=== PATIENT | male | born 1975 | race Caucasian/White ===

== ENCOUNTER 2016-10-28 23:35 | Emergency (ER) | payer OTHER ==
[~2016-10-28] VITALS: Ht 193 cm; Wt 86.4 kg
[~2016-10-28 23:35] MED LIST: ASPI81TA83 OR; IBUP600T OR; INSULIN; INSULIN NPH SC; insulin
[2016-10-28] MEDS ORDERED: LEVO50TA5 PO (23:46)
[2016-10-28] MEDS ORDERED: TRAZ1TAB14 PO (23:46)
[2016-10-29] MEDS ORDERED: NEOSPORIN OINT 0.9 GM PKT (FLOOR STOCK) As Ordered ONE (01:20)
[2016-10-29 01:28] VITALS: BP 139/87
== END 2016-10-29 01:29 | disposition home or self-care (01) ==
LOC: M ED 23:35
DX: S61.213A Laceration without foreign body of left middle finger without damage to nail, initial encounter (principal); W22.8XXA Striking against or struck by other objects, initial encounter; Y92.099 Unspecified place in other non-institutional residence as the place of occurrence of the external cause; Y93.89 Activity, other specified; Y99.9 Unspecified external cause status

== ENCOUNTER → 2017-01-11 | Outpatient (CLI) | payer OTHER ==
[~2017-01-11] MED LIST changes: +LEVO50TA5 PO; +TRAZ1TAB14 PO
--- NOTE | 2017-01-11 14:08 | REP ---
MR LUMBAR SPINE WITHOUT CONTRAST: HISTORY: Back pain. COMPARISON: 03/18/2010. Decreased signal intensity on T2-weighted images is present in the L3-4 through L5-S1 intervertebral discs. The L3-4 and L4-5 intervertebral discs are decreased in height. These findings are consistent with disc degeneration. There is no disc bulge or herniation at the L1-2 and L2-3 levels. The nerves exit the neural foramina without compression. A diffuse disc bulge and small central disc protrusion are present at the L3-4 level. There is minimal compression of the thecal sac. The L3 nerves exit the neural foramina without compression. A diffuse disc bugle is present at the L4-5 level. There is minimal compression of the thecal sac. There is hypertrophy of the posterior articulating facets. The L4 nerves exit the neural foramina without compression. A diffuse disc bugle and small right paracentral and intraforaminal disc protrusion are present at the L5-S1 level. The disc protrusion abuts the right S1 nerve. There is no thecal sac compression. There is hypertrophy of the posterior articulating facets. The L5 nerves exit the neural foramina without compression. The conus medullaris is normal in appearance terminating at the level of the T12-L1 intervertebral disc. Normal signal intensity is present in the lumbar vertebral bodies. IMPRESSION: 1. Diffuse disc bulge and small central disc protrusion at the L3-4 level with minimal thecal sac compression. This is a new finding. 2. Diffuse disc bulge at the L4-5 level with minimal thecal sac compression. 3. Diffuse disc bugle and small right paracentral and intraforaminal disc protrusion at the L5-S1 level. The disc protrusion abuts the right S1 nerve. There is no other significant change. Signed by Lennox Guzman MD 01/11/2017 02:26 P
== END ==
LOC: M RAD 12:49
PROVIDERS: ATTEND Family Medicine
DX: M51.26 Other intervertebral disc displacement, lumbar region (principal); M51.27 Other intervertebral disc displacement, lumbosacral region

== ENCOUNTER → 2017-05-15 | Outpatient (CLI) | payer OTHER | LOC: M RAD 13:32 | DX: M25.512 Pain in left shoulder (principal) | CPT/HCPCS: 73030 ==

== ENCOUNTER 2017-11-24 08:07 | Emergency (ER) | payer OTHER | END 2017-11-24 08:40 | disposition home or self-care (01) | LOC: M ED 08:07 | DX: L03.032 Cellulitis of left toe (principal); E03.9 Hypothyroidism, unspecified; F41.9 Anxiety disorder, unspecified; F17.200 Nicotine dependence, unspecified, uncomplicated; Z88.1 Allergy status to other antibiotic agents; Z88.0 Allergy status to penicillin; Z79.4 Long term (current) use of insulin; Z79.899 Other long term (current) drug therapy; Z79.890 Hormone replacement therapy | CPT/HCPCS: 99282 ==

== ENCOUNTER 2018-06-08 20:36 | Emergency (ER) | payer OTHER ==
[~2018-06-08] VITALS: Ht 193 cm; Wt 81.8 kg
[~2018-06-08 20:36] MED LIST changes: +ALPR0.5T3; +BACT800T5 PO; +HYDROCO/APAP PO; +INSURSD; +LEVO150T7; +NORCOTAB PO; +TOUJ1.2I
[2018-06-08 22:10] LABS: HEMOGLOBIN A1c 9.6 %
[2018-06-08 22:20] LABS: FREE THYROXINE INDEX 3.2 % (1.4-3.8); THYROID STIMULATING HORMONE 4.59 uIU/ML (0.358-3.740); THYROXINE (T4) 8.6 UG/DL (4.5-12.0)
[2018-06-08] MEDS ORDERED: LEVO112T2 PO (22:34)
[2018-06-08] MEDS ORDERED: TOUJ1.2I SC (22:34)
[2018-06-08 22:45] VITALS: BP 134/78
== END 2018-06-08 22:51 | disposition home or self-care (01) ==
LOC: M ED 20:36
DX: Z76.0 Encounter for issue of repeat prescription (principal); E11.9 Type 2 diabetes mellitus without complications; E03.9 Hypothyroidism, unspecified; F17.210 Nicotine dependence, cigarettes, uncomplicated; Z88.0 Allergy status to penicillin; Z88.1 Allergy status to other antibiotic agents; Z79.4 Long term (current) use of insulin; Z79.899 Other long term (current) drug therapy

== ENCOUNTER 2018-07-10 16:55 | Emergency (ER) | payer OTHER ==
[~2018-07-10] VITALS: Ht 193 cm; Wt 82.7 kg
[~2018-07-10 16:55] MED LIST changes: +HYDR-3715 PO; +LEVO112T2 PO; -NORCOTAB PO; +TOUJ1.2I SC
[2018-07-10] MEDS ORDERED: TOUJ1.2I SC ×2 (17:35→17:38)
[2018-07-10 17:51] LABS: BASO # 0.1 10^3/uL (0.0-0.2); BASO % 0.8 % (0.0-1.0); EOS # 0.5 10^3/uL (0.0-0.50); EOS % 4.1 % (0.0-3.0); HEMATOCRIT 40.4 % (42.0-52.0); HEMOGLOBIN 14.1 g/dl (13.5-17.5); LYMPH # 3.1 10^3/uL (1.5-4.5); LYMPH % 23.1 % (24.0-44.0); MEAN CORPUSCULAR HEMOGLOBIN 30.2 pg (27.0-33.0); MEAN CORPUSCULAR HGB CONC 34.9 g/dl (32.0-36.5); MEAN CORPUSCULAR VOLUME 86.5 fl (80.0-96.0); MONO # 0.8 10^3/uL (0.0-0.8); MONO % 6.1 % (0.0-5.0); NEUTROPHILS # 8.7 10^3/uL (1.8-7.7); NEUTROPHILS % 65.5 % (36.0-66.0); PLATELET COUNT, AUTOMATED 340 10^3/uL (150-450); RED BLOOD COUNT 4.67 10^6/uL (4.30-6.10); WHITE BLOOD COUNT 13.2 10^3/uL (4.0-10.0)
--- NOTE | 2018-07-10 18:01 | REP ---
PA and lateral chest: Comparison is a 02/12/2015. The lung camp are clear. The cardiac size is normal. The dianna, mediastinum, and skeletal structures are unremarkable. Impression: Negative PA and lateral chest. There is no interval change. Electronically Signed by Juaquin Rucker MD 07/10/2018 05:52 P
[2018-07-10 18:18] LABS: ALBUMIN 4.1 GM/DL (3.2-5.2); ALT/SGPT 23 U/L (12-78); BILIRUBIN,TOTAL 0.2 MG/DL (0.2-1.0); BLOOD UREA NITROGEN 15 MG/DL (7-18); CALCIUM LEVEL 9.1 MG/DL (8.5-10.1); CARBON DIOXIDE LEVEL 28 MEQ/L (21-32); CHLORIDE LEVEL 99 MEQ/L (98-107); CPK CREATINE PHOSPHOKINASE 227 U/L (39-308); CREATININE FOR GFR 1.12 MG/DL (0.70-1.30); GLOMERULAR FILTRATION RATE > 60.0 (>60); GLUCOSE, FASTING 309 MG/DL (70-100); MB/CK RELATIVE INDEX 1.15 (< OR =4); POTASSIUM SERUM 4.6 MEQ/L (3.5-5.1); SODIUM LEVEL 133 MEQ/L (136-145); TOTAL PROTEIN 7.1 GM/DL (6.4-8.2); TROPONIN I < 0.02 NG/ML (< 0.10)
[2018-07-10] MEDS ORDERED: ZANA4TAB PO (18:24)
[2018-07-10] MEDS ORDERED: MOBI4TAB PO (18:24)
[2018-07-10] MEDS ORDERED: NAPROXEN 250 MG TAB PO ONE (18:45)
[2018-07-10 18:56] VITALS: BP 136/83
[2018-07-10] MEDS ORDERED: NS 500 ML IV ONE (19:15)
[2018-07-10] MEDS ORDERED: KETOROLAC 30 MG/ML VIAL (J1885) IV ONE (19:15)
--- NOTE | 2018-07-10 21:48 | ECGEPIP ---
Stationary ECG Study [facility] - ED Test Date: 2018-07-10 Pat Name: RAMAKRISHNA FREIRE Department: Room: - Gender: M [employer] Maker: ct : 1975 Requested By: Damon Degroot Order Number: [id number] Reading MD: Anna Chery Measurements Intervals [place] Rate: 82 P: 77 [place]: 185 QRS: 205 QRSD: 153 T: 41 QT: 385 QTc: 451 Interpretive Statements SINUS RHYTHM INDETERMINATE AXIS RIGHT BUNDLE BRANCH BLOCK LEFT POSTERIOR FASCICULAR BLOCK INCREASED RATE 01/18/15 Electronically Signed On 07-10-2018 21:47:50 EDT by Anna Chery
== END 2018-07-10 19:02 | disposition home or self-care (01) ==
LOC: M ED 16:55
DX: Z76.0 Encounter for issue of repeat prescription (principal); R07.89 Other chest pain; I44.5 Left posterior fascicular block; I45.10 Unspecified right bundle-branch block; E11.9 Type 2 diabetes mellitus without complications; E03.9 Hypothyroidism, unspecified; F41.9 Anxiety disorder, unspecified; Z79.899 Other long term (current) drug therapy; Z79.890 Hormone replacement therapy; Z79.4 Long term (current) use of insulin; Z88.0 Allergy status to penicillin; Z88.1 Allergy status to other antibiotic agents; F17.210 Nicotine dependence, cigarettes, uncomplicated

== ENCOUNTER → 2018-07-24 | Outpatient (REF) | payer OTHER ==
[~2018-07-24] MED LIST changes: +MOBI4TAB PO; +ZANA4TAB PO
[2018-07-24 15:34] LABS: BLOOD UREA NITROGEN 11 MG/DL (7-18); CALCIUM LEVEL 8.9 MG/DL (8.5-10.1); CARBON DIOXIDE LEVEL 25 MEQ/L (21-32); CHLORIDE LEVEL 102 MEQ/L (98-107); CHOLESTEROL LEVEL 180 MG/DL (<200); CHOLESTEROL RISK RATIO 3.157 (<5); CREATININE FOR GFR 0.95 MG/DL (0.70-1.30); GLOMERULAR FILTRATION RATE > 60.0 (>60); GLUCOSE, FASTING 196 MG/DL (70-100); HDL CHOLESTEROL 57 MG/DL (>40); LDL CHOLESTEROL 115 MG/DL (<100); NON-HDL-C 123 MG/DL; POTASSIUM SERUM 4.5 MEQ/L (3.5-5.1); SODIUM LEVEL 135 MEQ/L (136-145); TRIGLYCERIDES LEVEL 41 MG/DL (<150)
[2018-07-24 16:04] LABS: MALB URINE SIEMENS 16.4 MG/L; MAU/CREAT RATIO 13.2 MCG/MG (0.0-30.0)
== END ==
LOC: M SFHCPLAZ 09:53
PROVIDERS: ATTEND Family Medicine
DX: E10.65 Type 1 diabetes mellitus with hyperglycemia (principal); E78.2 Mixed hyperlipidemia

== ENCOUNTER → 2019-03-10 | Outpatient (REF) | payer OTHER ==
[2019-03-10 14:13] LABS: HEMOGLOBIN A1c 9.3 %
[2019-03-10 14:30] LABS: BLOOD UREA NITROGEN 16 MG/DL (7-18); C REACTIVE PROTEIN QUANTITATIV < 0.30 MG/DL (0.00-0.30); CALCIUM LEVEL 9.5 MG/DL (8.5-10.1); CARBON DIOXIDE LEVEL 30 MEQ/L (21-32); CHLORIDE LEVEL 102 MEQ/L (98-107); CREATININE FOR GFR 0.97 MG/DL (0.70-1.30); FREE T4 0.88 NG/DL (0.76-1.46); GLOMERULAR FILTRATION RATE > 60.0 (>60); GLUCOSE, FASTING 142 MG/DL (70-100); POTASSIUM SERUM 4.6 MEQ/L (3.5-5.1); SODIUM LEVEL 135 MEQ/L (136-145)
== END ==
LOC: M SFHCPLAZ 11:43
PROVIDERS: ATTEND Physician Assistant
DX: E10.65 Type 1 diabetes mellitus with hyperglycemia (principal); M54.42 Lumbago with sciatica, left side; E03.9 Hypothyroidism, unspecified; E78.2 Mixed hyperlipidemia

== ENCOUNTER → 2019-03-12 | Outpatient (CLI) | payer OTHER ==
--- NOTE | 2019-03-12 14:01 | REP ---
Right elbow series: Four views. History: Pain in the right elbow. Findings: There is minimal soft tissue swelling about the olecranon process. There is no evidence of joint effusion. No fracture or arthropathy is evident. Impression: No acute abnormality. Mild miguel olecranon soft tissue swelling. Otherwise negative. Electronically Signed by Jacoby Velazquez MD 03/12/2019 01:53 P
== END ==
LOC: M LAB 09:24 → M RAD 09:24
PROVIDERS: ATTEND Physician Assistant
DX: M25.521 Pain in right elbow (principal)

== ENCOUNTER → 2019-06-02 | Outpatient (CLI) | payer OTHER ==
[2019-06-02 14:21] LABS: BLOOD UREA NITROGEN 15 MG/DL (7-18); CALCIUM LEVEL 9.7 MG/DL (8.5-10.1); CARBON DIOXIDE LEVEL 28 MEQ/L (21-32); CHLORIDE LEVEL 106 MEQ/L (98-107); FREE T4 1.05 NG/DL (0.76-1.46); GLOMERULAR FILTRATION RATE > 60.0 (>60); GLUCOSE, FASTING 121 MG/DL (70-100); POTASSIUM SERUM 4.8 MEQ/L (3.5-5.1); SODIUM LEVEL 137 MEQ/L (136-145)
[2019-06-02 14:56] LABS: HEMOGLOBIN A1c 7.6 %
== END ==
LOC: M PLALAB 10:43
PROVIDERS: ATTEND Physician Assistant
DX: E10.65 Type 1 diabetes mellitus with hyperglycemia (principal); E03.9 Hypothyroidism, unspecified

== ENCOUNTER → 2019-09-01 | Outpatient (REF) | payer OTHER ==
[2019-09-01 13:26] LABS: BLOOD UREA NITROGEN 9 MG/DL (7-18); CALCIUM LEVEL 9.4 MG/DL (8.5-10.1); CARBON DIOXIDE LEVEL 26 MEQ/L (21-32); CHLORIDE LEVEL 105 MEQ/L (98-107); CHOLESTEROL LEVEL 202 MG/DL (<200); CHOLESTEROL RISK RATIO 3.311 (<5); GLOMERULAR FILTRATION RATE > 60.0 (>60); GLUCOSE, FASTING 47 MG/DL (70-100); HDL CHOLESTEROL 61 MG/DL (>40); LDL CHOLESTEROL 132 MG/DL (<100); NON-HDL-C 141 MG/DL; POTASSIUM SERUM 4.3 MEQ/L (3.5-5.1); SODIUM LEVEL 138 MEQ/L (136-145); TRIGLYCERIDES LEVEL 43 MG/DL (<150)
[2019-09-01 13:55] LABS: MAU/CREAT RATIO 6.7 MCG/MG (0.0-30.0)
[2019-09-01 14:38] LABS: HEMOGLOBIN A1c 7.2 %
== END ==
LOC: M SFHCPLAZ 11:24
PROVIDERS: ATTEND Physician Assistant
DX: E10.65 Type 1 diabetes mellitus with hyperglycemia (principal); E78.2 Mixed hyperlipidemia

== ENCOUNTER → 2019-12-05 | Outpatient (CLI) | payer OTHER ==
--- NOTE | 2019-12-29 16:49 | REP ---
LUMBOSACRAL SPINE SERIES TECHNIQUE: AP, lateral, bilateral oblique views and coned down views of the lumbosacral spine. CLINICAL: Low back pain. FINDINGS: Alignment and lordosis maintained. Vertebral bodies are intact. Disc spaces appear relatively normal. No acute fracture/compression injury or subluxation. IMPRESSION: Normal radiographic evaluation of the lumbosacral spine. If the patient remains symptomatic consider MRI for further investigation. MTDD
== END ==
LOC: M RAD 11:46
PROVIDERS: ATTEND Physician Assistant
DX: M54.5 Low back pain (principal)

== ENCOUNTER → 2020-05-28 | Outpatient (REF) | payer OTHER ==
[2020-05-28 12:17] LABS: BLOOD UREA NITROGEN 17 MG/DL (7-18); CALCIUM LEVEL 9.4 MG/DL (8.5-10.1); CARBON DIOXIDE LEVEL 27 MEQ/L (21-32); CHLORIDE LEVEL 104 MEQ/L (98-107); CHOLESTEROL LEVEL 320 MG/DL (<200); CHOLESTEROL RISK RATIO 6.153 (<5); CREATININE FOR GFR 1.17 MG/DL (0.70-1.30); GLOMERULAR FILTRATION RATE > 60.0 (>60); GLUCOSE, FASTING 195 MG/DL (70-100); HDL CHOLESTEROL 52 MG/DL (>40); LDL CHOLESTEROL 246 MG/DL (<100); NON-HDL-C 268 MG/DL; SODIUM LEVEL 136 MEQ/L (136-145); TRIGLYCERIDES LEVEL 109 MG/DL (<150)
== END ==
LOC: M SFHCPLAZ 08:06
PROVIDERS: ATTEND Physician Assistant
DX: E10.65 Type 1 diabetes mellitus with hyperglycemia (principal); E78.2 Mixed hyperlipidemia

== ENCOUNTER → 2020-11-15 | Outpatient (CLI) | payer OTHER ==
[2020-11-15 18:13] LABS: ALBUMIN 3.8 GM/DL (3.2-5.2); ALT/SGPT 26 U/L (12-78); BILIRUBIN,TOTAL 0.3 MG/DL (0.2-1.0); BLOOD UREA NITROGEN 13 MG/DL (7-18); CALCIUM LEVEL 8.6 MG/DL (8.5-10.1); CARBON DIOXIDE LEVEL 28 MEQ/L (21-32); CHLORIDE LEVEL 102 MEQ/L (98-107); CHOLESTEROL LEVEL 185 MG/DL (<200); CHOLESTEROL RISK RATIO 5.781 (<5); CREATININE FOR GFR 1.14 MG/DL (0.70-1.30); FREE T4 0.78 NG/DL (0.76-1.46); GLOMERULAR FILTRATION RATE > 60.0 (>60); GLUCOSE, FASTING 268 MG/DL (70-100); HDL CHOLESTEROL 32 MG/DL (>40); LDL CHOLESTEROL 103 MG/DL (<100); NON-HDL-C 153 MG/DL; POTASSIUM SERUM 4.5 MEQ/L (3.5-5.1); SODIUM LEVEL 134 MEQ/L (136-145); TOTAL PROTEIN 6.8 GM/DL (6.4-8.2); TRIGLYCERIDES LEVEL 248 MG/DL (<150)
[2020-11-15 18:17] LABS: CREATININE, URINE 19.3 MG/DL; MALB URINE SIEMENS < 5.0 MG/L; MAU/CREAT RATIO 25.9 MCG/MG (0.0-30.0)
== END ==
LOC: M PLALAB 14:49
PROVIDERS: ATTEND Physician Assistant
DX: R53.83 Other fatigue (principal); R68.82 Decreased libido; E03.9 Hypothyroidism, unspecified; E10.65 Type 1 diabetes mellitus with hyperglycemia; E78.2 Mixed hyperlipidemia; Z15.89 Genetic susceptibility to other disease

== ENCOUNTER → 2021-03-22 | Outpatient (CLI) | payer OTHER ==
[2021-03-22 10:06] LABS: BASO # 0.1 10^3/uL (0.0-0.2); BASO % 0.9 % (0.0-1.0); EOS # 0.5 10^3/uL (0.0-0.5); EOS % 4.8 % (0.0-3.0); HEMATOCRIT 45.8 % (42.0-52.0); HEMOGLOBIN 15.5 g/dl (13.5-17.5); LYMPH # 3.1 10^3/uL (1.5-5.0); LYMPH % 31.9 % (24.0-44.0); MEAN CORPUSCULAR HEMOGLOBIN 29.2 pg (27.0-33.0); MEAN CORPUSCULAR HGB CONC 33.8 g/dl (32.0-36.5); MEAN CORPUSCULAR VOLUME 86.3 fl (80.0-96.0); MONO % 9.9 % (2.0-8.0); NEUTROPHILS # 5.1 10^3/uL (1.5-8.5); PLATELET COUNT, AUTOMATED 281 10^3/uL (150-450); RED BLOOD COUNT 5.31 10^6/uL (4.30-6.10); WHITE BLOOD COUNT 9.8 10^3/uL (4.0-10.0)
[2021-03-22 10:28] LABS: HEMOGLOBIN A1c 7.6 %
[2021-03-22 10:46] LABS: ALBUMIN 4.2 GM/DL (3.2-5.2); ALT/SGPT 25 U/L (12-78); BILIRUBIN,TOTAL 0.6 MG/DL (0.2-1.0); BLOOD UREA NITROGEN 12 MG/DL (7-18); CALCIUM LEVEL 9.8 MG/DL (8.5-10.1); CARBON DIOXIDE LEVEL 31 MEQ/L (21-32); CHLORIDE LEVEL 103 MEQ/L (98-107); CHOLESTEROL LEVEL 220 MG/DL (<200); CREATININE FOR GFR 0.98 MG/DL (0.70-1.30); FREE T4 0.89 NG/DL (0.76-1.46); GLOMERULAR FILTRATION RATE > 60.0 (>60); GLUCOSE, FASTING 76 MG/DL (70-100); HDL CHOLESTEROL 44 MG/DL (>40); LDL CHOLESTEROL 155 MG/DL (<100); NON-HDL-C 176 MG/DL; POTASSIUM SERUM 4.2 MEQ/L (3.5-5.1); SODIUM LEVEL 137 MEQ/L (136-145); TOTAL PROTEIN 7.3 GM/DL (6.4-8.2); TRIGLYCERIDES LEVEL 107 MG/DL (<150)
[2021-03-22 11:00] LABS: CREATININE, URINE 87.9 MG/DL; MALB URINE SIEMENS 5.1 MG/L; MAU/CREAT RATIO 5.8 MCG/MG (0.0-30.0)
== END ==
LOC: M WUC 08:14
PROVIDERS: ATTEND Nurse Practitioner Family
DX: E10.65 Type 1 diabetes mellitus with hyperglycemia (principal); E03.9 Hypothyroidism, unspecified; E78.2 Mixed hyperlipidemia

== ENCOUNTER → 2021-07-20 | Outpatient (CLI) | payer OTHER ==
[2021-07-20 13:36] LABS: BASO # 0.1 10^3/uL (0.0-0.2); EOS # 0.4 10^3/uL (0.0-0.5); EOS % 3.6 % (0.0-3.0); HEMATOCRIT 44.9 % (42.0-52.0); HEMOGLOBIN 15.4 g/dl (13.5-17.5); LYMPH # 3.1 10^3/uL (1.5-5.0); LYMPH % 25.1 % (24.0-44.0); MEAN CORPUSCULAR HEMOGLOBIN 29.4 pg (27.0-33.0); MEAN CORPUSCULAR HGB CONC 34.3 g/dl (32.0-36.5); MEAN CORPUSCULAR VOLUME 85.7 fl (80.0-96.0); MONO # 0.8 10^3/uL (0.0-0.8); MONO % 6.8 % (2.0-8.0); NEUTROPHILS # 7.6 10^3/uL (1.5-8.5); NEUTROPHILS % 62.8 % (36.0-66.0); PLATELET COUNT, AUTOMATED 319 10^3/uL (150-450); RED BLOOD COUNT 5.24 10^6/uL (4.30-6.10); WHITE BLOOD COUNT 12.1 10^3/uL (4.0-10.0)
[2021-07-20 14:07] LABS: ALBUMIN 4.2 GM/DL (3.2-5.2); ALT/SGPT 28 U/L (12-78); BILIRUBIN,TOTAL 0.6 MG/DL (0.2-1.0); BLOOD UREA NITROGEN 18 MG/DL (7-18); CALCIUM LEVEL 9.2 MG/DL (8.5-10.1); CARBON DIOXIDE LEVEL 28 MEQ/L (21-32); CHLORIDE LEVEL 100 MEQ/L (98-107); CHOLESTEROL LEVEL 275 MG/DL (<200); CHOLESTEROL RISK RATIO 5.288 (<5); CREATININE FOR GFR 1.19 MG/DL (0.70-1.30); FREE T4 0.91 NG/DL (0.76-1.46); GLOMERULAR FILTRATION RATE > 60.0 (>60); GLUCOSE, FASTING 263 MG/DL (70-100); HDL CHOLESTEROL 52 MG/DL (>40); LDL CHOLESTEROL 201 MG/DL (<100); MALB URINE SIEMENS 6.9 MG/L; MAU/CREAT RATIO 6.1 MCG/MG (0.0-30.0); NON-HDL-C 223 MG/DL; POTASSIUM SERUM 4.9 MEQ/L (3.5-5.1); SODIUM LEVEL 133 MEQ/L (136-145); TRIGLYCERIDES LEVEL 112 MG/DL (<150)
[2021-07-20 14:45] LABS: HEMOGLOBIN A1c 10.3 %
== END ==
LOC: M PLALAB 11:03
PROVIDERS: ATTEND Nurse Practitioner Family
DX: E10.65 Type 1 diabetes mellitus with hyperglycemia (principal); E03.9 Hypothyroidism, unspecified; E78.2 Mixed hyperlipidemia

== ENCOUNTER → 2021-11-14 | Outpatient (CLI) | payer OTHER ==
[2021-11-14 16:10] LABS: HEMOGLOBIN A1c 8.8 %
[2021-11-14 16:22] LABS: ALBUMIN 3.7 GM/DL (3.2-5.2); ALT/SGPT 23 U/L (12-78); BILIRUBIN,TOTAL 0.3 MG/DL (0.2-1.0); BLOOD UREA NITROGEN 15 MG/DL (7-18); CALCIUM LEVEL 9.4 MG/DL (8.5-10.1); CARBON DIOXIDE LEVEL 28 MEQ/L (21-32); CHLORIDE LEVEL 105 MEQ/L (98-107); CHOLESTEROL LEVEL 212 MG/DL (<200); CHOLESTEROL RISK RATIO 4.156 (<5); CREATININE FOR GFR 1.03 MG/DL (0.70-1.30); FREE T4 0.79 NG/DL (0.76-1.46); GLOMERULAR FILTRATION RATE > 60.0 (>60); GLUCOSE, FASTING 80 MG/DL (70-100); HDL CHOLESTEROL 51 MG/DL (>40); LDL CHOLESTEROL 144 MG/DL (<100); NON-HDL-C 161 MG/DL; POTASSIUM SERUM 4.9 MEQ/L (3.5-5.1); SODIUM LEVEL 137 MEQ/L (136-145); TOTAL PROTEIN 6.9 GM/DL (6.4-8.2); TRIGLYCERIDES LEVEL 84 MG/DL (<150)
== END ==
LOC: M PLALAB 11:48
PROVIDERS: ATTEND Nurse Practitioner Family
DX: E10.65 Type 1 diabetes mellitus with hyperglycemia (principal); E78.2 Mixed hyperlipidemia; E03.9 Hypothyroidism, unspecified

== ENCOUNTER → 2022-01-16 | Outpatient (CLI) | payer OTHER ==
[2022-01-16 09:13] LABS: BASO # 0.1 10^3/uL (0.0-0.2); BASO % 0.9 % (0.0-1.0); EOS # 0.6 10^3/uL (0.0-0.5); EOS % 5.6 % (0.0-3.0); HEMATOCRIT 41.3 % (42.0-52.0); HEMOGLOBIN 14.1 g/dl (13.5-17.5); LYMPH # 2.2 10^3/uL (1.5-5.0); LYMPH % 20.3 % (24.0-44.0); MEAN CORPUSCULAR HEMOGLOBIN 30.1 pg (27.0-33.0); MEAN CORPUSCULAR HGB CONC 34.1 g/dl (32.0-36.5); MEAN CORPUSCULAR VOLUME 88.1 fl (80.0-96.0); MONO # 0.9 10^3/uL (0.0-0.8); MONO % 8.8 % (2.0-8.0); NEUTROPHILS # 6.8 10^3/uL (1.5-8.5); NEUTROPHILS % 63.8 % (36.0-66.0); PLATELET COUNT, AUTOMATED 321 10^3/uL (150-450); RED BLOOD COUNT 4.69 10^6/uL (4.30-6.10); WHITE BLOOD COUNT 10.7 10^3/uL (4.0-10.0)
[2022-01-16 09:44] LABS: ALBUMIN 3.5 GM/DL (3.2-5.2); ALT/SGPT 28 U/L (12-78); BILIRUBIN,TOTAL 0.4 MG/DL (0.2-1.0); BLOOD UREA NITROGEN 11 MG/DL (7-18); CALCIUM LEVEL 8.7 MG/DL (8.5-10.1); CARBON DIOXIDE LEVEL 26 MEQ/L (21-32); CHLORIDE LEVEL 100 MEQ/L (98-107); CHOLESTEROL LEVEL 184 MG/DL (<200); CHOLESTEROL RISK RATIO 3.471 (<5); CREATININE FOR GFR 1.23 MG/DL (0.70-1.30); FREE T4 0.75 NG/DL (0.76-1.46); GLOMERULAR FILTRATION RATE > 60.0 (>60); GLUCOSE, FASTING 387 MG/DL (70-100); HDL CHOLESTEROL 53 MG/DL (>40); LDL CHOLESTEROL 100 MG/DL (<100); NON-HDL-C 131 MG/DL; POTASSIUM SERUM 4.9 MEQ/L (3.5-5.1); SODIUM LEVEL 132 MEQ/L (136-145); TOTAL PROTEIN 6.5 GM/DL (6.4-8.2); TRIGLYCERIDES LEVEL 154 MG/DL (<150)
[2022-01-16 10:01] LABS: HEMOGLOBIN A1c 8.4 %
== END ==
LOC: M LAB 08:06
PROVIDERS: ATTEND Nurse Practitioner Family
DX: E10.65 Type 1 diabetes mellitus with hyperglycemia (principal); E78.2 Mixed hyperlipidemia; E03.9 Hypothyroidism, unspecified

== ENCOUNTER → 2022-02-03 | Outpatient (CLI) | payer OTHER ==
[2022-02-06 18:11] LABS: PSA TOTAL 0.8 ng/mL (0.0-4.0); TESTOSTERONE FREE (DIRECT) 16.2 pg/mL (6.8-21.5)
== END ==
LOC: M PLALAB 12:28
PROVIDERS: ATTEND Nurse Practitioner Family
DX: N52.9 Male erectile dysfunction, unspecified (principal)

== ENCOUNTER → 2022-07-17 | Outpatient (CLI) | payer OTHER ==
[2022-07-17 10:42] LABS: BASO # 0.1 10^3/uL (0.0-0.2); BASO % 0.7 % (0.0-1.0); EOS # 0.5 10^3/uL (0.0-0.5); EOS % 4.2 % (0.0-3.0); HEMATOCRIT 45.5 % (42.0-52.0); HEMOGLOBIN 15.2 g/dl (13.5-17.5); LYMPH # 2.2 10^3/uL (1.5-5.0); LYMPH % 20.4 % (24.0-44.0); MEAN CORPUSCULAR HEMOGLOBIN 28.8 pg (27.0-33.0); MEAN CORPUSCULAR HGB CONC 33.4 g/dl (32.0-36.5); MEAN CORPUSCULAR VOLUME 86.2 fl (80.0-96.0); MONO # 0.9 10^3/uL (0.0-0.8); MONO % 8.6 % (2.0-8.0); NEUTROPHILS % 65.6 % (36.0-66.0); PLATELET COUNT, AUTOMATED 309 10^3/uL (150-450); RED BLOOD COUNT 5.28 10^6/uL (4.30-6.10); WHITE BLOOD COUNT 10.7 10^3/uL (4.0-10.0)
[2022-07-17 13:19] LABS: HEMOGLOBIN A1c 8.9 % (4.0-6.0)
[2022-07-17 23:08] LABS: ALBUMIN 3.8 G/DL (3.2-5.2); ALKALINE PHOSPHATASE 50 U/L (46-116); ALT/SGPT 12 U/L (7.0-40); AST/SGOT 20 U/L (<34); BILIRUBIN,TOTAL 0.3 MG/DL (0.3-1.2); BLOOD UREA NITROGEN 16 MG/DL (9-23); CALCIUM LEVEL 8.9 MG/DL (8.5-10.1); CARBON DIOXIDE LEVEL 29 MMOL/L (20-31); CHLORIDE LEVEL 104 MMOL/L (98-107); CHOLESTEROL LEVEL 219 MG/DL (<200); CHOLESTEROL RISK RATIO 4.98 (<5); CREATININE FOR GFR 1.04 MG/DL (0.70-1.30); GLOMERULAR FILTRATION RATE > 60.0 (>60); GLUCOSE, FASTING 115 MG/DL (60-100); HDL CHOLESTEROL 43.9 MG/DL (>40); LDL CHOLESTEROL 154.1 MG/DL (<100); NON-HDL-C 175.1 MG/DL; POTASSIUM SERUM 3.9 MMOL/L (3.5-5.1); SODIUM LEVEL 137 MMOL/L (136-145); THYROID STIMULATING HORMONE 13.286 uIU/ML (0.55-4.78); TOTAL PROTEIN 6.4 G/DL (5.7-8.2); TRIGLYCERIDES LEVEL 105 MG/DL (<150)
[2022-07-17 23:10] LABS: FREE T4 0.63 NG/DL (0.89-1.76)
== END ==
LOC: M PLALAB 08:39
PROVIDERS: ATTEND Nurse Practitioner Family
DX: E03.9 Hypothyroidism, unspecified (principal)

== ENCOUNTER → 2022-09-18 | Outpatient (CLI) | payer OTHER ==
[2022-09-18 14:46] LABS: THYROID STIMULATING HORMONE 3.025 uIU/ML (0.55-4.78)
[2022-09-18 14:47] LABS: FREE T4 1.18 NG/DL (0.89-1.76)
== END ==
LOC: M PLALAB 12:00
PROVIDERS: ATTEND Nurse Practitioner Family
DX: E03.9 Hypothyroidism, unspecified (principal)

== ENCOUNTER → 2023-01-09 | Outpatient (CLI) | payer OTHER ==
[2023-01-09 10:35] LABS: BASO # 0.1 10^3/uL (0.0-0.2); EOS # 0.6 10^3/uL (0.0-0.5); EOS % 5.9 % (0.0-3.0); HEMATOCRIT 44.8 % (42.0-52.0); LYMPH # 2.5 10^3/uL (1.5-5.0); LYMPH % 23.6 % (24.0-44.0); MEAN CORPUSCULAR HEMOGLOBIN 29.4 pg (27.0-33.0); MEAN CORPUSCULAR HGB CONC 33.5 g/dl (32.0-36.5); MEAN CORPUSCULAR VOLUME 87.7 fl (80.0-96.0); MONO # 0.7 10^3/uL (0.0-0.8); MONO % 6.7 % (2.0-8.0); NEUTROPHILS # 6.5 10^3/uL (1.5-8.5); NEUTROPHILS % 62.3 % (36.0-66.0); PLATELET COUNT, AUTOMATED 321 10^3/uL (150-450); RED BLOOD COUNT 5.11 10^6/uL (4.30-6.10); WHITE BLOOD COUNT 10.4 10^3/uL (4.0-10.0)
[2023-01-09 10:56] LABS: HEMOGLOBIN A1c 7.6 % (4.0-6.0)
[2023-01-09 11:12] LABS: THYROID STIMULATING HORMONE 8.849 uIU/ML (0.55-4.78)
[2023-01-09 11:13] LABS: ALBUMIN 4.1 G/DL (3.2-5.2); ALKALINE PHOSPHATASE 48 U/L (46-116); ALT/SGPT 23 U/L (7.0-40); AST/SGOT 12 U/L (<34); BILIRUBIN,TOTAL 0.4 MG/DL (0.3-1.2); BLOOD UREA NITROGEN 15 MG/DL (9-23); CALCIUM LEVEL 9.6 MG/DL (8.5-10.1); CARBON DIOXIDE LEVEL 29 MMOL/L (20-31); CHLORIDE LEVEL 102 MMOL/L (98-107); CHOLESTEROL LEVEL 212 MG/DL (<200); CHOLESTEROL RISK RATIO 4.29 (<5); CREATININE FOR GFR 0.94 MG/DL (0.70-1.30); GLOMERULAR FILTRATION RATE > 60.0 (>60); GLUCOSE, FASTING 319 MG/DL (60-100); HDL CHOLESTEROL 49.4 MG/DL (>40); LDL CHOLESTEROL 142.2 MG/DL (<100); NON-HDL-C 162.6 MG/DL; POTASSIUM SERUM 5.3 MMOL/L (3.5-5.1); SODIUM LEVEL 134 MMOL/L (136-145); TOTAL PROTEIN 6.9 G/DL (5.7-8.2); TRIGLYCERIDES LEVEL 102 MG/DL (<150)
[2023-01-09 11:14] LABS: FREE T4 0.94 NG/DL (0.89-1.76)
== END ==
LOC: M PLALAB 08:44
PROVIDERS: ATTEND Nurse Practitioner Family
DX: E10.65 Type 1 diabetes mellitus with hyperglycemia (principal)

== ENCOUNTER → 2023-01-25 | Outpatient (REF) | payer OTHER ==
[2023-01-25 19:26] LABS: CREATININE, URINE 150.4 MG/DL; MAU/CREAT RATIO 4.6 MCG/MG (0.0-30.0)
== END ==
LOC: M LAB REF 16:56
PROVIDERS: ATTEND Nurse Practitioner Family
DX: E10.65 Type 1 diabetes mellitus with hyperglycemia (principal)

== ENCOUNTER → 2023-02-13 | Outpatient (CLI) | payer OTHER | LOC: M PLAIMG 11:35 | PROVIDERS: ATTEND Physician Assistant Medical | DX: M79.2 Neuralgia and neuritis, unspecified (principal); M19.011 Primary osteoarthritis, right shoulder; M50.322 Other cervical disc degeneration at C5-C6 level ==

== ENCOUNTER → 2023-03-15 | Outpatient (CLI) | payer OTHER ==
[~2023-03-15] MED LIST changes: +INSU100V19; -INSURSD; +PROHANCE 279.3MG/ML 15ML VIAL As Ordered ONE; +PROHANCE 279.3MG/ML 5ML VIAL As Ordered ONE
== END ==
LOC: M RAD 08:28
PROVIDERS: ATTEND Physician Assistant Medical
DX: M79.2 Neuralgia and neuritis, unspecified (principal); J32.0 Chronic maxillary sinusitis
CPT/HCPCS: 70544; 70549; 70551; A9576

== ENCOUNTER → 2023-05-09 | Outpatient (CLI) | payer OTHER ==
[~2023-05-09] MED LIST changes: -PROHANCE 279.3MG/ML 15ML VIAL As Ordered ONE; -PROHANCE 279.3MG/ML 5ML VIAL As Ordered ONE
[2023-05-09 10:08] LABS: BLOOD UREA NITROGEN 13 MG/DL (9-23); CALCIUM LEVEL 9.2 MG/DL (8.5-10.1); CARBON DIOXIDE LEVEL 30 MMOL/L (20-31); CHLORIDE LEVEL 103 MMOL/L (98-107); CREATININE FOR GFR 0.85 MG/DL (0.70-1.30); GLOMERULAR FILTRATION RATE > 60.0 (>56); GLUCOSE, FASTING 128 MG/DL (60-100); POTASSIUM SERUM 4.4 MMOL/L (3.5-5.1); SODIUM LEVEL 137 MMOL/L (136-145)
== END ==
LOC: M LAB 08:54
PROVIDERS: ATTEND Orthopaedic Surgery
DX: Z01.812 Encounter for preprocedural laboratory examination (principal)

== ENCOUNTER → 2024-06-03 | Outpatient (REF) | payer OTHER ==
[2024-06-03 19:17] LABS: THYROID STIMULATING HORMONE 11.558 uIU/ML (0.55-4.78)
[2024-06-03 19:18] LABS: TOTAL 25(OH) VITAMIN D 25.1 NG/ML (20.0-100.0)
[2024-06-03 19:19] LABS: ALBUMIN 4.2 G/DL (3.2-5.2); ALKALINE PHOSPHATASE 78 U/L (40-129); ALT/SGPT 23 U/L (7.0-40); AST/SGOT 12 U/L (<34); BILIRUBIN,TOTAL 0.7 MG/DL (0.3-1.2); BLOOD UREA NITROGEN 17 MG/DL (9-23); CALCIUM LEVEL 10.3 MG/DL (8.5-10.1); CARBON DIOXIDE LEVEL 29 MMOL/L (20-31); CHLORIDE LEVEL 102 MMOL/L (98-107); CHOLESTEROL LEVEL 210 MG/DL (<200); CHOLESTEROL RISK RATIO 2.94 (<5); CREATININE FOR GFR 0.98 MG/DL (0.70-1.30); GLOMERULAR FILTRATION RATE > 60.0 (>56); GLUCOSE, FASTING 47 MG/DL (60-100); HDL CHOLESTEROL 71.3 MG/DL (>40); LDL CHOLESTEROL 124.3 MG/DL (<100); NON-HDL-C 138.7 MG/DL; POTASSIUM SERUM 4.6 MMOL/L (3.5-5.1); SODIUM LEVEL 139 MMOL/L (136-145); TOTAL PROTEIN 7.8 G/DL (5.7-8.2); TRIGLYCERIDES LEVEL 72 MG/DL (<150)
[2024-06-03 19:20] LABS: FREE T4 0.93 NG/DL (0.89-1.76)
[2024-06-03 19:29] LABS: HEMOGLOBIN A1c 10.5 % (4.0-6.0)
[2024-06-03 19:43] LABS: HIV 1&2 SCREEN NEGATIVE (NEGATIVE)
[2024-06-03 20:32] LABS: CREATININE, URINE 247.4 MG/DL; MAU/CREAT RATIO 56.1 MCG/MG (0.0-30.0)
[2024-06-04 18:19] LABS: HEPATITIS C VIRUS ABY INDEX 0.03 INDEX (<0.8)
[2024-06-06 13:17] LABS: PSA FREE 0.2 ng/mL; PSA TOTAL 0.5 ng/mL (< OR = 4.0)
== END ==
LOC: M LAB REF 17:35
PROVIDERS: ATTEND Physician Assistant
DX: E10.9 Type 1 diabetes mellitus without complications (principal); Z11.9 Encounter for screening for infectious and parasitic diseases, unspecified; E55.9 Vitamin D deficiency, unspecified; Z12.5 Encounter for screening for malignant neoplasm of prostate; E03.9 Hypothyroidism, unspecified

== ENCOUNTER 2024-06-23 17:46 | Inpatient (IN) | payer OTHER ==
[~2024-06-23] VITALS: Ht 195.6 cm; Wt 80.1 kg
[2024-06-23 18:47] LABS: BASO # 0.1 10^3/uL (0.0-0.2); BASO % 0.9 % (0.0-1.0); EOS # 0.2 10^3/uL (0.0-0.5); EOS % 1.5 % (0.0-3.0); HEMATOCRIT 42.7 % (42.0-52.0); HEMOGLOBIN 14.4 g/dl (13.5-17.5); LYMPH % 12.5 % (24.0-44.0); MEAN CORPUSCULAR HEMOGLOBIN 29.1 pg (27.0-33.0); MEAN CORPUSCULAR HGB CONC 33.7 g/dl (32.0-36.5); MEAN CORPUSCULAR VOLUME 86.4 fl (80.0-96.0); MONO % 6.6 % (2.0-8.0); NEUTROPHILS # 12.3 10^3/uL (1.5-8.5); NEUTROPHILS % 78.1 % (36.0-66.0); PLATELET COUNT, AUTOMATED 337 10^3/uL (150-450); RED BLOOD COUNT 4.94 10^6/uL (4.30-6.10); WHITE BLOOD COUNT 15.7 10^3/uL (4.0-10.0)
[2024-06-23 18:57] LABS: INR 0.98; PROTHROMBIN TIME 13.3 SECONDS (12.5-14.5)
[2024-06-23 19:15] LABS: ETHYL ALCOHOL (ETHANOL) < 0.003 % (0.000-0.010)
[2024-06-23 19:17] LABS: SALICYLATE LEVEL < 3.0 MG/DL (<30)
[2024-06-23 19:22] LABS: D-DIMER QUANT 0.46 ug/mL (<0.5)
[2024-06-23 19:25] LABS: THYROID STIMULATING HORMONE 8.582 uIU/ML (0.55-4.78)
[2024-06-23 19:27] LABS: LIPASE 19 U/L (12-53)
[2024-06-23 19:29] LABS: CPK CREATINE PHOSPHOKINASE 74 U/L (46-171)
[2024-06-23] MEDS: LanTUS (INSULIN GLARGINE INJ) 1 UNITS/0.01 ML SC STA (19:29)
[2024-06-23 19:32] LABS: CK-MB VALUE MASS < 1.0 NG/ML (<3.6); MB/CK RELATIVE INDEX 1.35 (< OR =4)
[2024-06-23 19:47] LABS: FREE T4 0.85 NG/DL (0.89-1.76)
[2024-06-23 19:52] LABS: AMPHETAMINES LEVEL URINE NEGATIVE (NEGATIVE); BARBITURATES URINE NEGATIVE (NEGATIVE); BENZODIAZEPINES URINE NEGATIVE (NEGATIVE); METHADONE URINE NEGATIVE (NEGATIVE); OPIATES URINE NEGATIVE (NEGATIVE); PHENCYCLIDINE URINE NEGATIVE (NEGATIVE)
[2024-06-23 19:59] LABS: CANNABINOIDS URINE POSITIVE (NEGATIVE); COCAINE METABOLITE URINE POSITIVE (NEGATIVE)
[2024-06-23 19:59] LABS: ALBUMIN 3.4 G/DL (3.2-5.2); ALKALINE PHOSPHATASE 75 U/L (40-129); ALT/SGPT 17 U/L (7.0-40); AST/SGOT 11 U/L (<34); BILIRUBIN,DIRECT 0.1 MG/DL (<0.4); BILIRUBIN,TOTAL 0.5 MG/DL (0.3-1.2); BLOOD UREA NITROGEN 11 MG/DL (9-23); CALCIUM LEVEL 8.6 MG/DL (8.5-10.1); CARBON DIOXIDE LEVEL 26 MMOL/L (20-31); CHLORIDE LEVEL 92 MMOL/L (98-107); CREATININE FOR GFR 0.92 MG/DL (0.70-1.30); GLOMERULAR FILTRATION RATE > 60.0 (>56); GLUCOSE, FASTING 633 MG/DL (60-100); POTASSIUM SERUM 5.6 MMOL/L (3.5-5.1); SODIUM LEVEL 128 MMOL/L (136-145); TOTAL PROTEIN 6.5 G/DL (5.7-8.2)
[2024-06-23] MEDS: HumuLIN R (REGULAR) INSULIN (NovoLIN R) **100U/ML** PER UNIT IV ONE ×2 (20:07→21:20)
[2024-06-23] MEDS ORDERED: BASA100I SQ (23:27)
[2024-06-23] MEDS ORDERED: HYDR-3363 PO (23:27)
[2024-06-23] MEDS ORDERED: GABA-1172 PO (23:27)
[2024-06-24] MEDS ORDERED: MED REC IN PROGRESS XX SCH (00:10)
[2024-06-24] MEDS ORDERED: MAALOX 30 ML SUSP *UDC PO PRN (00:30)
[2024-06-24] MEDS ORDERED: GLUCOSE 4 GM CHEW PO PRN (00:30)
[2024-06-24] MEDS ORDERED: DEXTROSE 50% 50ML SYRINGE IV PRN (00:30)
[2024-06-24] MEDS ORDERED: GLUCAGON INJ 1MG VIAL SC PRN (00:30)
[2024-06-24] MEDS ORDERED: MOM 30ML SUSPENSION UDC PO PRN (00:30)
[2024-06-24] MEDS: IBUPROFEN 400MG TAB PO PRN (00:55)
[2024-06-24] MEDS: traZODone 50 MG TAB PO PRN (02:19)
[2024-06-24 02:27] VITALS: BP 124/64; TEMP 97.4; O2SAT 99
[2024-06-24] MEDS: INSULIN LISPRO (NovoLOG) PER UNIT SC SCH ×2 (07:04→20:58)
[2024-06-24 11:26] LABS: BLOOD UREA NITROGEN 10 MG/DL (9-23); CALCIUM LEVEL 9.3 MG/DL (8.5-10.1); CARBON DIOXIDE LEVEL 34 MMOL/L (20-31); CHLORIDE LEVEL 101 MMOL/L (98-107); CREATININE FOR GFR 0.99 MG/DL (0.70-1.30); GLOMERULAR FILTRATION RATE > 60.0 (>56); GLUCOSE, FASTING 114 MG/DL (60-100); POTASSIUM SERUM 3.9 MMOL/L (3.5-5.1); SODIUM LEVEL 138 MMOL/L (136-145)
[2024-06-24] MEDS ORDERED: HUMA100I5 SC (11:35)
[2024-06-24] MEDS ORDERED: SYNT75TA PO (11:35)
[2024-06-24] MEDS ORDERED: HOME MED LIST COMPLETE! XX SCH (11:35)
[2024-06-24] MEDS ORDERED: NORT10CA2 PO (11:35)
[2024-06-24] MEDS ORDERED: LEXA1TAB PO (11:35)
[2024-06-24 11:50] LABS: HEMOGLOBIN A1c 9.7 % (4.0-6.0)
[2024-06-24] MEDS: OLANZapine 5 MG TAB PO SCH (12:00)
[2024-06-24] MEDS: GABAPENTIN 300 MG CAP PO SCH (12:00)
[2024-06-24] MEDS: LanTUS (INSULIN GLARGINE INJ) 1 UNITS/0.01 ML SC SCH (12:23)
[2024-06-24 15:15] VITALS: BP 124/62; TEMP 96.4; O2SAT 97
[2024-06-25 06:38] VITALS: BP 152/70; TEMP 97; O2SAT 100
[2024-06-25 07:22] LABS: FREE T4 0.78 NG/DL (0.89-1.76)
[2024-06-25 07:23] LABS: THYROID STIMULATING HORMONE 9.523 uIU/ML (0.55-4.78)
[2024-06-25] MEDS: ACETAMINOPHEN 325 MG TAB PO PRN (07:40)
[2024-06-25] MEDS: diphenhydrAMINE 25MG CAP PO PRN (10:52)
[2024-06-25] MEDS: LEVOTHYROXINE 112MCG TABLET (0.112MG) PO SCH (12:16)
[2024-06-25 15:07] VITALS: BP 130/65; TEMP 97.8; O2SAT 100
[2024-06-26 06:43] VITALS: BP 134/70; TEMP 97.7; O2SAT 97
[2024-06-26] MEDS ORDERED: GABA-1172 PO (11:09)
[2024-06-26] MEDS ORDERED: TRAZ-252 PO (11:09)
[2024-06-26] MEDS ORDERED: INSULANT SC (11:09)
[2024-06-26] MEDS ORDERED: OLAN1TAB16 PO (11:09)
[2024-06-26] MEDS ORDERED: SYNT112T2 PO (11:09)
== END 2024-06-26 13:30 | disposition home or self-care (01) | DRG 753 ==
LOC: M ED 17:46 → M ED INP 06-24 00:27 → M PSY 06-24 01:59
PROVIDERS: ADMIT Psychiatry & Neurology Neurology; ATTEND Psychiatry & Neurology Neurology
DX: F31.30 Bipolar disorder, current episode depressed, mild or moderate severity, unspecified (principal); R45.851 Suicidal ideations; F17.210 Nicotine dependence, cigarettes, uncomplicated; E11.42 Type 2 diabetes mellitus with diabetic polyneuropathy; E11.65 Type 2 diabetes mellitus with hyperglycemia; E87.1 Hypo-osmolality and hyponatremia; E87.5 Hyperkalemia; F14.90 Cocaine use, unspecified, uncomplicated; F12.90 Cannabis use, unspecified, uncomplicated; Z88.0 Allergy status to penicillin; Z88.1 Allergy status to other antibiotic agents; Z79.899 Other long term (current) drug therapy; E07.9 Disorder of thyroid, unspecified